=== PATIENT | male | born 1995 | race Caucasian/White ===

== ENCOUNTER 2018-12-12 09:05 | Emergency (ER) | payer OTHER ==
[2018-12-12 09:11] VITALS: PULSE 60; RESP 18; TEMP 97.8
[2018-12-12] MEDS ORDERED: PANTOPRAZOLE 40 MG/10 ML VIAL IVP STA (09:22)
[2018-12-12] MEDS ORDERED: ONDANSETRON 4 MG/2 ML VIAL IVP STA (09:22)
[2018-12-12] MEDS ORDERED: MORPHINE SULFATE 4 MG/ML SYRINGE IVP STA (09:22)
[2018-12-12] MEDS ORDERED: KETOROLAC 30 MG/ML 1 ML VIAL IVP STA (09:22)
[2018-12-12] MEDS ORDERED: SODIUM CHLORIDE 0.9% 1,000 ML IV ONE (09:22)
[2018-12-12] MEDS ORDERED: SODIUM CHLORIDE 0.9% 1,000 ML IV SCH (09:30)
--- NOTE | 2018-12-12 09:42 | ED ---
Abdominal Pain HPI - General Chief Complaint: Abdominal Pain Stated Complaint: lt sided abd pain Time Seen by Provider: 12/12/18 09:12 Source: patient, RN notes reviewed, old records reviewed Mode of arrival: ambulatory Limitations: no limitations - History of Present Illness Initial Comments: Patient is a 23-year-old male presents raise from today with complaints of left lower quadrant abdominal pain. Patient reports that he symptoms started this mo rning upon awakening. Does report it radiates towards his back. Patient denies any associated fevers or chills. He tried to go to the bathroom with no relief of symptoms. Patient denies any associated chest pain shortness breath or coughing. Patient states that he's had an appendectomy in the past. - Related Data Previous Rx's Medication Instructions Recorded HYDROcodone/APAP 5-325MG [[place] 1 tab PO Q6HR PRN 3 Days #12 tab 12/12/18 5-325] Ketorolac [Toradol] 10 mg PO TID #15 tab 12/12/18 Ondansetron Odt [Zofran Odt] 4 mg PO Q8HR PRN #12 tab 12/12/18 Tamsulosin [Flomax] 0.4 mg PO DAILY #9 cap 12/12/18 Allergies Allergy/AdvReac Type Severity Reaction Status Date / Time latex Allergy Unknown Verified 12/12/18 09:59 Review of Systems ROS Statement: Those systems with pertinent positive or pertinent negative responses have been documented in the HPI. ROS Other: All systems not noted in ROS Statement are negative. Past Medical History Past Medical History: No Reported History History of Any Multi-Drug Resistant Organisms: None Reported Additional Past Surgical History / Comment(s): intestinal surg Smoking Status: Current every day smoker Past Alcohol Use History: None Reported Past Drug Use History: Marijuana General Exam - General Exam Comments Initial Comments: This is a 23-year-old male. Alert and oriented. appears in mild to moderate discomfort. No significant distress. Limitations: no limitations General appearance: alert, in no apparent distress Head exam: Present: atraumatic, normocephalic, normal inspection Eye exam: Present: normal appearance, PERRL, EOMI. Absent: scleral icterus, conjunctival injection, periorbital swelling ENT exam: Present: normal exam Neck exam: Present: normal inspection. Absent: tenderness, meningismus, lymphadenopathy Respiratory exam: Present: normal lung sounds bilaterally. Absent: respiratory distress, wheezes, rales, rhonchi, stridor Cardiovascular Exam: Present: regular rate, normal rhythm, normal heart sounds. Absent: systolic murmur, diastolic murmur, rubs, gallop, clicks GI/Abdominal exam: Present: soft, tenderness (Left lower quadrant tenderness) Extremities exam: Present: normal inspection, full ROM, normal capillary refill. Absent: tenderness, pedal edema, joint swelling, calf tenderness Back exam: Present: normal inspection Neurological exam: Present: alert, oriented X3, CN II-XII intact Psychiatric exam: Present: normal affect, normal mood Course Vital Signs 12/12/18 12/12/18 09:08 10:18 Temperature 97.8 F Pulse Rate 60 Respiratory 18 Rate Blood Pressure 138/76 130/74 O2 Sat by Pulse 98 Oximetry Medical Decision Making - Medical Decision Making Patient's an 83-year-old male presents for service today for evaluation for left-sided flank pain and lower abdominal pain. Symptoms started this morning. At this time patient's labwork was reviewed. Evidence of blood cells in the urine. Patient's white blood cell count is elevated 18,000. Patient will have urine culture completed. He was given a gram of Rocephin IV. CT on pelvis is evidence of multiple stones passing through the mid ureter. Measuring 7 mm x 4 mm, 3 mm and 2 mm. Patient was given Flomax. On reevaluation is resting comfortably bed. Discussed that he will need follow with urology for possibility of lithotripsy or ureteral stent. Patient understands treatment plan will comply. Return parameters were discussed. - Lab Data Result diagrams: 12/12/18 09:35 12/12/18 09:35 Lab Results 12/12/18 12/12/18 12/12/18 Range/Units 09:35 09:35 09:35 WBC 18.3 H (3.8-10.6) k/uL RBC 4.65 (4.30-5.90) m/uL Hgb 14.2 (13.0-17.5) gm/dL Hct 42.5 (39.0-53.0) % MCV 91.5 (80.0-100.0) fL MCH 30.6 (25.0-35.0) pg MCHC 33.5 (31.0-37.0) g/dL RDW 14.1 (11.5-15.5) % Plt Count 305 (150-450) k/uL Neutrophils % 83 % Lymphocytes % 10 % Monocytes % 5 % Eosinophils % 1 % Basophils % 0 % Neutrophils # 15.1 H (1.3-7.7) k/uL Lymphocytes # 1.9 (1.0-4.8) k/uL Monocytes # 0.9 (0-1.0) k/uL Eosinophils # 0.2 (0-0.7) k/uL Basophils # 0.0 (0-0.2) k/uL Sodium 141 (137-145) mmol/L Potassium 3.7 (3.5-5.1) mmol/L Chloride 106 (98-107) mmol/L Carbon Dioxide 26 (22-30) mmol/L Anion Gap 9 mmol/L BUN 12 (9-20) mg/dL Creatinine 1.25 (0.66-1.25) mg/dL Est GFR (CKD-EPI)AfAm >90 (>60 ml/min/1.73 sqM) Est GFR (CKD-EPI)NonAf 80 (>60 ml/min/1.73 sqM) Glucose 137 H (74-99) mg/dL Calcium 9.9 (8.4-10.2) mg/dL Total Bilirubin 0.8 (0.2-1.3) mg/dL AST 22 (17-59) U/L ALT 23 (21-72) U/L Alkaline Phosphatase 100 (38-126) U/L Total Protein 7.3 (6.3-8.2) g/dL Albumin 4.7 (3.5-5.0) g/dL Amylase 58 (30-110) U/L Lipase 31 (23-300) U/L Urine Color Dark Brown Urine Appearance Cloudy (Clear) Urine pH 6.0 (5.0-8.0) Ur Specific Ackerman 1.033 (1.001-1.035) Urine Protein 3+ H (Negative) Urine Glucose (UA) Negative (Negative) Urine Ketones Trace H (Negative) Urine Blood Large H (Negative) Urine Nitrite Negative (Negative) Urine Bilirubin Negative (Negative) Urine Urobilinogen 2.0 (<2.0) mg/dL Ur Leukocyte Esterase Moderate H (Negative) Urine RBC >182 H (0-5) /hpf Urine WBC 8 H (0-5) /hpf Urine Mucus Moderate H (None) /hpf - Radiology Data Radiology results: report reviewed CT shows a string of 3 colliculi in the mid left ureter measuring 7 x 4 mm, 3 mm and 2 mm. There is resultant mild obstructive uropathy. Additional punctate nondestructive bilateral renal colliculi. Disposition Clinical Impression: Left ureteral stone Disposition: HOME SELF-CARE Condition: Good Instructions (If sedation given, give patient instructions): Ureteral Stones (ED) Additional Instructions: Patient advised to have close follow-up with primary care doctor and urology. Return to the emergency department if any alarming signs or symptoms occur. Take medications as prescribed. Prescriptions: Tamsulosin [Flomax] 0.4 mg PO DAILY #9 cap HYDROcodone/APAP 5-325MG [[place] 5-325] 1 tab PO Q6HR PRN 3 Days #12 tab PRN Reason: Pain Ketorolac [Toradol] 10 mg PO TID #15 tab Ondansetron Odt [Zofran Odt] 4 mg PO Q8HR PRN #12 tab PRN Reason: Nausea Is patient prescribed a controlled substance at d/c from ED?: Yes When asked, does pt state using other controlled substances?: No If prescribed controlled substance>3 days was MAPS reviewed?: Prescribed <3 Days If opioid is for acute pain is fill amount 7 days or less?: Yes If Rx opioid, was Start Talking consent form obtained?: Yes Referrals: Dayday Cordero MD [Primary Care Provider] - 1-2 days Adal Bashir MD [STAFF PHYSICIAN] - 1-2 days Time of Disposition: 11:13
--- NOTE | 2018-12-12 09:54 | XR ---
EXAMINATION TYPE: XR KUB DATE OF EXAM: 12/12/2018 COMPARISON: NONE HISTORY: Pain TECHNIQUE: One view abdominal series FINDINGS: The osseous structures are intact. The bowel gas pattern is nonspecific. Lung bases are clear. Curv ature the spine noted. Density may represent contrast within the bladder overlying the perineum. IMPRESSION: 1. Nonspecific abdomen.
[2018-12-12 10:00] LABS: Basophils % (A) 0 %; Eosinophils # (A) 0.2 k/uL (0-0.7); Eosinophils % (A) 1 %; HCT 42.5 % (39.0-53.0); HGB 14.2 gm/dL (13.0-17.5); Lymphocytes # (A) 1.9 k/uL (1.0-4.8); Lymphocytes % (A) 10 %; MCH 30.6 pg (25.0-35.0); MCHC 33.5 g/dL (31.0-37.0); MCV 91.5 fL (80.0-100.0); Mean Platelet Volume 9.1; Monocytes # (A) 0.9 k/uL (0-1.0); Monocytes % (A) 5 %; Neutrophils # (A) 15.1 k/uL (1.3-7.7); Neutrophils % (A) 83 %; Platelet Count 305 k/uL (150-450); RBC 4.65 m/uL (4.30-5.90); RDW 14.1 % (11.5-15.5); WBC 18.3 k/uL (3.8-10.6)
[2018-12-12 10:11] LABS: ALT 23 U/L (21-72); AST 22 U/L (17-59); African American GFR (CKD) >90 (>60 ml/min/1.73 sqM); Albumin 4.7 g/dL (3.5-5.0); Alkaline Phosphatase 100 U/L (38-126); Amylase 58 U/L (30-110); Anion Gap 9 mmol/L; Blood Urea Nitrogen 12 mg/dL (9-20); Calcium 9.9 mg/dL (8.4-10.2); Carbon Dioxide 26 mmol/L (22-30); Chloride 106 mmol/L (98-107); Glucose 137 mg/dL (74-99); Lipase 31 U/L (23-300); Potassium 3.7 mmol/L (3.5-5.1); Sodium 141 mmol/L (137-145); Total Bilirubin 0.8 mg/dL (0.2-1.3); Total Protein 7.3 g/dL (6.3-8.2)
[2018-12-12 10:21] LABS: Appearance,Urine Cloudy (Clear); Bilirubin,Urine Negative (Negative); Blood,Urine Large (Negative); Color,Urine Dark Brown; Glucose,Urine (UA) Negative (Negative); Ketones,Urine Trace (Negative); Leukocyte Esterase,Urine Moderate (Negative); Mucus,Urine Moderate /hpf; Nitrite,Urine Negative (Negative); Protein,Urine 3+ (Negative); RBC,Urine >182 /hpf (0-5); Specific Gravity,Urine 1.033 (1.001-1.035); WBC,Urine 8 /hpf (0-5)
[2018-12-12] MEDS ORDERED: cefTRIAXone IN SWFI 1,000 MG/10 ML SYRINGE IVP STA (10:26)
--- NOTE | 2018-12-12 10:48 | CT ---
EXAMINATION TYPE: CT abdomen pelvis wo con DATE OF EXAM: 12/12/2018 COMPARISON: Radiograph same day HISTORY: 23-year-old male Lt flank pain CT DLP: 347 mGycm. Automated exposure control for dose reduction was used. TECHNIQUE: Contiguous axial scanning of the abdomen and pelvis without IV contrast. Coronal and sagit curtis reconstructions performed. FINDINGS: Heart normal size without pericardial effusion. Lung bases clear without pleural effusion. Noncontrast appearance of the liver, gallbladder, adrenal glands, spleen, and pancreas show no gross abnormality. Limited intra-abdominal fat and lack of contrast limits assessment. Numerous punctate 1 mm nonobstructive calculi are present in the right kidney. There is also some alcides rphous density in the region of the renal medullary pyramids suggesting concentrated renal cells. Left kidney shows a punctate nonobstructive 1 mm lower pole calculus along with mild hydronephrosis a nd a string of 3 midureteric calculi measuring 7 x 4 mm, 3 mm, and 2 mm, refer to coronal images 43 a nd 44. No dilated small bowel, free fluid, or free air. Limited assessment of abdominal lymphadenopathy. No significant stool burden. Phlebolith in the left side of the pelvis. Bladder nondistended. No abnormal fluid collection seen in the pelvis. Bones: Mild disc bulging from L3 through S1 levels. IMPRESSION: 1. A string of 3 calculi in the mid left ureter measuring 7 x 4 mm, 3 mm, and 2 mm. There is resulta nt mild obstructive uropathy. 2. Additional punctate nonobstructive bilateral renal calculi.
[2018-12-12 11:28] VITALS: BP 121/56
== END 2018-12-12 11:35 | disposition home or self-care (01) ==
LOC: EC 09:05
DX: N20.2 Calculus of kidney with calculus of ureter (principal); N13.9 Obstructive and reflux uropathy, unspecified; D72.829 Elevated white blood cell count, unspecified; F17.200 Nicotine dependence, unspecified, uncomplicated; Z91.040 Latex allergy status; Z90.49 Acquired absence of other specified parts of digestive tract; Z98.890 Other specified postprocedural states
CPT/HCPCS: 99285; 96365; 96375 ×4; 96361; 36415; 80053; 82150; 83690; 85025; 81001; 87086; 74018; 74176; J2270; J2405; J0696; J1885; C9113

== ENCOUNTER 2018-12-15 15:18 | Observation (INO) | payer OTHER ==
[2018-12-15] MEDS ORDERED: LIDOCAINE 1% INJ 10MG/ML (20 ML MDV) SQ ONE (15:48)
--- NOTE | 2018-12-15 16:12 | XR ---
EXAMINATION TYPE: XR hand complete RT DATE OF EXAM: 12/15/2018 CLINICAL HISTORY: pain TECHNIQUE: Frontal, lateral and oblique images of the right hand are obtained. COMPARISON: None. FINDINGS: There is dislocation involving the first interphalangeal joint right hand. Fracture fragmen t is noted which is felt to arise from the medial head of the proximal phalanx. Soft tissue deformity noted. No additional fractures seen. IMPRESSION: Fracture dislocation interphalangeal joint right thumb.
--- NOTE | 2018-12-15 16:30 | ED ---
Upper Extremity HPI - General Chief Complaint: Extremity Injury, Upper Stated Complaint: Thumb Lac Time Seen by Provider: 12/15/18 15:44 Source: patient, RN notes reviewed, old records reviewed Mode of arrival: ambulatory Limitations: no limitations - History of Present Illness Initial Comments: This is a 23-year-old male the ER for evaluation. Patient resents today for evaluation in regards to fall. Patient fell landing on right hand, sustaining significant right hand injury patient does have open fracture dislocation of right thumb. Patient resents to ER one hour after falling off ladder no other injury from fall. Patient himself denies any significant pain acutely in that joint MD Complaint: Injury to:: right, finger -: minutes(s) Other Extremity Injury: Fingers: Right Handedness: right Place: work Severity scale (1-10): 3 Improves With: none Worsens With: none Context: fall Associated Symptoms: denies other symptoms - Related Data Previous Rx's Medication Instructions Recorded HYDROcodone/APAP 5-325MG [[place] 1 tab PO Q6HR PRN 3 Days #12 tab 12/12/18 5-325] Ketorolac [Toradol] 10 mg PO TID #15 tab 12/12/18 Allergies Allergy/AdvReac Type Severity Reaction Status Date / Time latex Allergy Unknown Verified 12/15/18 16:09 Review of Systems ROS Statement: Those systems with pertinent positive or pertinent negative responses have been documented in the HPI. ROS Other: All systems not noted in ROS Statement are negative. Past Medical History Past Medical History: No Reported History History of Any Multi-Drug Resistant Organisms: None Reported Additional Past Surgical History / Comment(s): intestinal surg Smoking Status: Current every day smoker Past Alcohol Use History: None Reported Past Drug Use History: Marijuana General Exam - General Exam Comments Initial Comments: Right thumb fracture dislocation Limitations: no limitations General appearance: alert, in no apparent distress Head exam: Present: atraumatic, normocephalic, normal inspection Eye exam: Present: normal appearance, PERRL, EOMI. Absent: scleral icterus, conjunctival injection, periorbital swelling ENT exam: Present: normal exam, mucous membranes moist Neck exam: Present: normal inspection. Absent: tenderness, meningismus, lymphadenopathy Respiratory exam: Present: normal lung sounds bilaterally. Absent: respiratory distress, wheezes, rales, rhonchi, stridor Cardiovascular Exam: Present: regular rate, normal rhythm, normal heart sounds. Absent: systolic murmur, diastolic murmur, rubs, gallop, clicks GI/Abdominal exam: Present: soft, normal bowel sounds. Absent: distended, tenderness, guarding, rebound, rigid Extremities exam: Present: normal inspection, full ROM, normal capillary refill. Absent: tenderness, pedal edema, joint swelling, calf tenderness Back exam: Present: normal inspection Neurological exam: Present: alert, oriented X3, CN II-XII intact Psychiatric exam: Present: normal affect, normal mood Skin exam: Present: warm, dry, intact, normal color. Absent: rash Course Vital Signs 12/15/18 12/15/18 12/15/18 15:34 17:00 17:05 Temperature 98.8 F Pulse Rate 103 H 63 61 Respiratory 18 8 L 10 L Rate Blood Pressure 130/76 127/67 132/91 O2 Sat by Pulse 98 100 99 Oximetry 12/15/18 12/15/18 17:10 17:20 Temperature Pulse Rate 64 71 Respiratory 12 16 Rate Blood Pressure 114/63 121/67 O2 Sat by Pulse 100 100 Oximetry Procedures - Orthopedic Fracture Reduction Fracture #1 Consent Obtained: verbal consent Side: right Fracture Reduction Location: finger (thumb) Analgesia: procedural sedation Technique: direct manipulation Post Reduction X-rays Demonstrate: other (failed reduction) Post-Reduction Neuro Exam: intact Post-Reduction Vascular Exam: intact Splint Applied: Yes Patient Tolerated Procedure: well - Orthopedic Joint Reduction Joint #1 Consent Obtained: verbal consent Side: right Joint Reduction Location: finger (thumb) Analgesia: digital block Technique Used: direct manipulation Post-Reduction Neuro Exam: intact Post-Reduction Vascular Exam: intact Post Reduction X-Ray Obtained: No Post Reduction X-Ray Results: not reduced Splint Applied: No Patient Tolerated Procedure: well - Procedural Sedation Procedural Sedation Start Time: 17:00 Procedural Sedation Stop Time: 17:45 Indications: fracture/dislocation reduction ASA Class: I Mallampati Airway Score: 1 Preparation: monitor car operator applied, pulse oximeter, capnometry used IV Propofol Dose (mgs): 200 Complications: none Interventions: oxygen applied Patient Tolerated Procedure: well Medical Decision Making - Medical Decision Making 23 male the ER with fall, right thumb fracture dislocation, unable to reduce fracture here in the ER, patient will be admitted to or so for surgical fixation - Radiology Data Radiology results: report reviewed (X-ray hand shows right thumb first interphalangeal joint fracture dislocation), image reviewed Disposition Clinical Impression: Open fracture dislocation of right thumb Disposition: ADMITTED IP TO THIS HOSP Condition: Fair Is patient prescribed a controlled substance at d/c from ED?: No Referrals: Dayday Cordero MD [Primary Care Provider] - 1-2 days
[2018-12-15] MEDS: PROPOFOL 10 MG/ML 20 ML VIAL IV ONE ×3 (17:05→17:10)
[2018-12-15] MEDS ORDERED: SODIUM CHLORIDE 0.9% 1,000 ML IV STA ×2 (17:27)
[2018-12-15] MEDS ORDERED: ceFAZolin IN SWFI 2 GM/20 ML SYRINGE IVP STA ×2 (17:27→23:30)
[2018-12-15] MEDS ORDERED: MORPHINE SULFATE 4 MG/ML SYRINGE IVP STA (17:30)
[2018-12-15] MEDS ORDERED: MORPHINE SULFATE 4 MG/ML SYRINGE IVP PRN (17:30)
[2018-12-15] MEDS ORDERED: LIDOCAINE 1%/EPI 1:200,000 MPF 10 ML VIAL SQ STA (19:08)
[2018-12-15] MEDS ORDERED: SODIUM BICARB 8.4% 50 ML SYR (1 MEQ/ML) IV STA (19:23)
[2018-12-15] MEDS ORDERED: LIDOCAINE 2%-EPI 1:200,000 20 ML VIAL SQ STA (19:23)
--- NOTE | 2018-12-15 19:34 | XR ---
EXAMINATION TYPE: XR finger RT DATE OF EXAM: 12/15/2018 COMPARISON: NONE HISTORY: Post reduction TECHNIQUE: 2 views FINDINGS: There is a posterior medial dislocation of the distal phalanx of the thumb. There is 7 mm c hip fracture of the head of the proximal phalanx of the thumb. There is no significant change in posi tion compared to initial exam. IMPRESSION: Persistent fracture dislocation of the IP joint of the right thumb.
--- NOTE | 2018-12-15 20:32 | P.HPOR ---
History of Present Illness H&P Date: 12/15/18 Chief Complaint: Right thumb injury Mr. Elizabeth is a pleasant 23-year-old [id number] male who sustained an injury to his right thumb earlier today after a fall from a ladder. 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 He was evaluated in the emergency department where x-rays revealed a fracture dislocation of his right thumb interphalangeal joint. Closed reduction under sedation was attempted by the emergency department physicians but the joint failed to reduce. The patient localizes the pain to the tip of the right thumb denies any other injuries. He denies previous history of injury to the thumb. He denies any numbness or tingling. Past medical history significant for kidney stones for which she is currently taking Anabel and toradol. He is a current smoker of greater than a pack a day and has smoked for over 10 years. Past Medical History Past Medical History: No Reported History History of Any Multi-Drug Resistant Organisms: None Reported Additional Past Surgical History / Comment(s): intestinal surg Smoking Status: Current every day smoker Past Alcohol Use History: None Reported Past Drug Use History: Marijuana Medications and Allergies Home Medications Medication Instructions Recorded Confirmed Type HYDROcodone/APAP 5-325MG [[place] 1 tab PO Q6HR PRN 3 Days #12 tab 12/12/18 12/15/18 Rx 5-325] Ketorolac [Toradol] 10 mg PO TID #15 tab 12/12/18 12/15/18 Rx Allergies Allergy/AdvReac Type Severity Reaction Status Date / Time latex Allergy Unknown Verified 12/15/18 16:09 Physical Examination Examination the right thumb reveals an open wound on the radial aspect of the th umb IP joint, measuring approximately 13 mm by 6 mm, with protruding bone of the head of the proximal phalanx visible. There is visible ulnar displacement/angulation of the distal phalanx. He is able to perform limited active IP flexion and extension. There is no active bleeding. No gross purulence or foreign debris. Light touch sensation is subjectively intact distal to the wound and this is symmetric to the contralateral side of the thumb. The tip of the digit is warm and well-perfused with brisk capillary refill. Has no pain with palpation or passive manipulation of the MCP joint, proximal phalanx or throughout the remainder of the hand. Results X-rays of the right thumb were reviewed and interpreted from an orthopedic standpoint. These demonstrate a lateral fracture-dislocation of the thumb IP joint with a displaced fracture of the ulnar condyle of the head of the proximal phalanx. The distal phalanxes translated proximally 75% laterally with a slight dorsal displacement. No other obvious intra-articular fractures. Assessment and Plan Assessment: 1. Open fracture-dislocation of the right thumb interphalangeal joint 2. Nicotine addiction/tobacco abuse (1) Open fracture dislocation of interphalangeal joint of right thumb Current Visit: Yes Status: Acute Code(s): S62.501B - FRACTURE OF UNSP PHALANX OF RIGHT THUMB, INIT FOR OPN FX SNOMED Code(s): 966897581 Plan: I discussed the diagnosis and radiographic findings with the patient. We reviewed the pertinent anatomy and pathophysiology of the injury. We discussed treatment options. He initially elected to try a repeat closed reduction. This was performed by myself in the ER but the joint remained dislocated. Please see procedure note for full details. I recommended proceeding with formal operative irrigation and debridement and open reduction of the right thumb interphalangeal joint with possible internal fixation. We discussed the surgical plan. Risks and benefits were reviewed including (but not limited to) the risks of infection, bleeding, recurrent dislocation, post- traumatic arthritis and possible need for additional surgery. Questions were invited and answered. Patient expressed understanding and wishes to proceed with surgery. We we will keep him NPO and proceed with surgery as soon as possible. Zackery Dutta D.O. Orthopedic surgeon [facility] Time with Patient: Greater than 30
--- NOTE | 2018-12-15 20:42 | P.PCN ---
Date of Procedure: 12/15/18 Preoperative Diagnosis: Open fracture-dislocation of the right thumb interphalangeal joint Postoperative Diagnosis: Open fracture-dislocation of the right thumb interphalangeal joint Procedure(s) Performed: Attempted closed reduction of the right thumb interphalangeal joint Anesthesia: local Surgeon: Zackery Dutta Estimated Blood Loss (ml): 1 Condition: stable Disposition: no change Indications for Procedure: The patient is a pleasant 23-year-old male who sustained an open fracture dislocation of his right thumb. Treatment options were discussed including closed versus open reduction. Risks and benefits of each treatment were reviewed with the patient. He expressed understanding agreement and wished to proceed with closed reduction. Description of Procedure: After informed consent obtained, a digital block of the right thumb was performed using 10 mL of 2% lidocaine with epinephrine (1:200,000) with sodium bicarbonate in a 10:1 ratio. After an appropriate interval of time, the thumb and hand were irrigated with normal saline and prepped with Betadine. A manual closed reduction was attempted. Utilizing combinations of flexion, extension and axial traction, the distal phalanx was manipulated but a firm block to reduction was repeatedly encountered. A sterile dressing was applied. The patient tolerated this very well and denied any discomfort with the manipulation. We will plan to proceed with formal open reduction in the operating room.
[2018-12-15] MEDS ORDERED: DIPH,PERTUS(ACELL)TETVAC-LF 0.5 ML VIAL IM ONE (20:49)
[2018-12-15] MEDS ORDERED: GLYCOPYRROLATE 0.2 MG/ML 2 ML VIAL ONE (21:10)
[2018-12-15] MEDS ORDERED: MIDAZOLAM 2 MG/2 ML VIAL ONE (21:10)
[2018-12-15] MEDS ORDERED: fentaNYL (PF) 50 MCG/ML 2 ML AMP ONE (21:10)
[2018-12-15] MEDS ORDERED: KETAMINE 10 MG/ML 20 ML VIAL ONE (21:10)
[2018-12-15] MEDS ORDERED: PROPOFOL 10 MG/ML 20 ML VIAL IV ONE (21:10)
[2018-12-15] MEDS ORDERED: SODIUM CHLORIDE 0.9% 1,000 ML IV ONE (21:16)
--- NOTE | 2018-12-15 23:26 | P.OP ---
Date of Procedure: 12/15/18 Preoperative Diagnosis: Open fracture-dislocation of the right thumb interphalangeal joint Postoperative Diagnosis: Open fracture-dislocation of the right thumb interphalangeal joint Procedure(s) Performed: 1. Irrigation and debridement of open fracture-dislocation of the right thumb interphalangeal joint 2. Open reduction of the right thumb interphalangeal joint dislocation 3. Internal fixation of displaced fracture of the proximal phalanx ulnar co ndyle Implants: 0.028 K-wires (2) Anesthesia: MAC Surgeon: Zackery Dutta Estimated Blood Loss (ml): 3 Condition: stable Disposition: PACU Indications for Procedure: The patient is a 23-year-old [id number] male who sustained an open fracture-dislocation of his right thumb interphalangeal joint after a fall from a ladder. Attempts to reduce this in the emergency department were unsuccessful and surgical treatment was recommended. Risks and benefits were reviewed including (but not limited to) the risk of infection, bleeding, injury to tendons or neurovascular structures, chronic pain, posttraumatic arthritis and possible need for future surgery. He expressed understanding and wished to proceed with surgery. Consent forms were signed. The operative site was confirmed and marked preoperatively. Description of Procedure: The patient was positioned supine with the operative limb on an arm board. Monitored anesthesia was administered uneventfully. A time-out was performed, confirming patient identifiers, the operative side, site and the procedure to be performed: all team members expressed agreement. The right upper extremity was then prepped and draped in standard, sterile fashion. The limb was exsanguinated with an Esmarch which was clamped at the wrist and used as a tourniquet. Loupe magnification was used throughout the case for optimum visualization. The previous traumatic wound was sharply extended proximally and distally in a Betzaida fashion. The radial neurovascular bundle was identified and protected throughout the case. Spreading dissection proceeded down to the flexor sheath. The fracture site was exposed and cleaned of hematoma. There was no gross purulence or foreign debris. The wound and fracture site was copiously irrigated with normal saline and mechanically debrided with a curette. The volar plate was interposed between the fracture fragments. This was mobilized with a [place] elevator and the interphalangeal joint was reduced. This was confirmed on imaging. There was good overall stability. There was a displaced fracture of the ulnar condyle of the proximal phalanx which was still malaligned. He [place] was inserted and used to manipulate the fracture into position. A 0.028 K-wire was inserted percutaneously and driven across the fracture site. Position and alignment of the fracture and wire was confirmed on imaging. A second wire was inserted in similar fashion to provide better stability. Final x-rays were obtained which confirmed concentric reduction of the IP joint without subluxation or angulation. This was then stressed under live fluoroscopy: No motion was identified at the fracture site and there was no gross instability of the IP joint. The Esmarch tourniquet was released and good hemostasis was achieved with held pressure. The wound was again irrigated with normal saline. The incision and traumatic wound were closed with interrupted 5-0 nylon sutures. The K wires were cut short and covered with Jurgan balls. A sterile dressing was applied followed by an AlumaFoam splint and Coban. All sponge, needle and instrument counts were correct at the end of the case. The patient tolerated the procedure well and was transferred to recovery in stable condition.
[2018-12-15 23:57] VITALS: RESP 16; TEMP 97.8
[2018-12-16 02:21] VITALS: BP 156/98; PULSE 76
[2018-12-16] MEDS ORDERED: ceFAZolin IN SWFI 2 GM/20 ML SYRINGE IVP SCH (06:00)
--- NOTE | 2018-12-16 07:37 | FL ---
EXAMINATION TYPE: FL guidance operating room DATE OF EXAM: 12/15/2018 HISTORY: Flouroscopy time 1 minute and 45 seconds of fluoroscopy provided. IMPRESSION: 1. Fluoroscopy time.
--- NOTE | 2018-12-20 10:51 | P.DS ---
Providers Date of admission: 12/15/18 17:29 Expected date of discharge: 12/15/18 Attending physician: Zackery Dutta DO Primary care physician: Gil Naylor - Discharge Diagnosis(es) (1) Open fracture dislocation of interphalangeal joint of right thumb Status: Acute Hospital Course: The patient sustained an open fracture dislocation of his right thumb interphalangeal joint. He was taken to the operating room for open reduction and internal fixation. See operative report for full details of the procedure. His hospital course was uneventful. At time of discharge, his pain is well- controlled, his vital signs are stable and he is deemed fit for discharge home. Patient Condition at Discharge: Good Plan - Discharge Summary New Discharge Prescriptions: New Cephalexin [Keflex] 500 mg PO Q8H 5 Days #15 cap HYDROcodone/APAP 5-325MG [[place] 5-325] 1 tab PO Q6HR PRN #15 tab PRN Reason: Pain No Action HYDROcodone/APAP 5-325MG [[place] 5-325] 1 tab PO Q6HR PRN 3 Days #12 tab PRN Reason: Pain Ketorolac [Toradol] 10 mg PO TID #15 tab Discharge Medication List HYDROcodone/APAP 5-325MG [[place] 5-325] 1 tab PO Q6HR PRN 3 Days #12 tab 12/12/18 [Rx] Ketorolac [Toradol] 10 mg PO TID #15 tab 12/12/18 [Rx] Cephalexin [Keflex] 500 mg PO Q8H 5 Days #15 cap 12/15/18 [Rx] HYDROcodone/APAP 5-325MG [[place] 5-325] 1 tab PO Q6HR PRN #15 tab 12/15/18 [Rx] Follow up Appointment(s)/Referral(s): Dayday Cordero MD [Primary Care Provider] - 1-2 days Zackery Dutta DO [Medical Doctor] - 1 Week Activity/Diet/Wound Care/Special Instructions: Orthopedic Postoperative Discharge Instructions Ice & elevate the right thumb. Use [place] OR over the counter pain medication as directed. Take antibiotics until gone. No strenuous/forceful use of the hand. No lifting/gripping/pushing/pulling. Ok to use hand for light activities (eating/dressing/etc). NO use of the thumb. Keep the splint/dressing dry. Cover with a plastic bag to shower. Call as soon as possible to schedule a follow-up appointment with Dr. Dutta to be seen in approximately 1 week. Discharge Disposition: HOME SELF-CARE
== END 2018-12-16 02:34 | disposition home or self-care (01) ==
LOC: EC 15:18 → 1SOBS 17:29 → 4SSUR 20:27
PROVIDERS: ADMIT Orthopaedic Surgery; ATTEND Orthopaedic Surgery
DX: S62.501B Fracture of unspecified phalanx of right thumb, initial encounter for open fracture (principal); S63.104A Unspecified dislocation of right thumb, initial encounter; F17.210 Nicotine dependence, cigarettes, uncomplicated; Z87.442 Personal history of urinary calculi; Z91.040 Latex allergy status; W11.XXXA Fall on and from ladder, initial encounter; Z79.891 Long term (current) use of opiate analgesic; Z53.39 Other specified procedure converted to open procedure
CPT/HCPCS: 26742; 26746; 11010; 64450; 90471; 73130; 73140; 90715; G0378 ×3; C1713; J2250; J2270; J2001; J3010; J2704; J0690 ×2